=== PATIENT | female | born 2000 | race Two or more races ===

== ENCOUNTER 2023-04-09 15:03 | Emergency (ER) | payer MEDICAID ==
[~2023-04-09] VITALS: Ht 170.2 cm; Wt 62.0 kg
[2023-04-09 16:02] VITALS: BP 108/59; PULSE 79; RESP 16; TEMP 98.8; O2SAT 98
== END 2023-04-09 16:26 | disposition home or self-care (01) ==
LOC: ER 15:03
DX: S61.411A Laceration without foreign body of right hand, initial encounter (principal); W22.8XXA Striking against or struck by other objects, initial encounter; Y93.89 Activity, other specified; Y92.89 Other specified places as the place of occurrence of the external cause; Y99.8 Other external cause status
CPT/HCPCS: 12001

== ENCOUNTER 2024-01-01 00:27 | Emergency (ER) | payer MEDICAID ==
[~2024-01-01] VITALS: Ht 170.2 cm; Wt 69.9 kg
[2024-01-01] MEDS: ONDANSETRON ODT 4 MG TAB PO ONE (05:15)
[2024-01-01 05:17] VITALS: BP 109/62; PULSE 78; RESP 18; TEMP 97.7; O2SAT 97
[2024-01-01] MEDS ORDERED: ZOFR4T PO (05:32)
== END 2024-01-01 06:07 | disposition home or self-care (01) ==
LOC: ER 00:27
DX: A05.9 Bacterial foodborne intoxication, unspecified (principal)
CPT/HCPCS: 99283; Q0162

== ENCOUNTER 2025-03-11 19:06 | Emergency (ER) | payer MEDICAID ==
[~2025-03-11] VITALS: Ht 172.7 cm; Wt 79.3 kg
[~2025-03-11 19:06] MED LIST: ZOFR4T PO
[2025-03-11] MEDS: SODIUM CHLORIDE 0.9% 1,000 ML IVB ONE (19:45)
[2025-03-11 19:55] LABS: Hematocrit 39.9 % (36.0-46.0); Hemoglobin 13.5 g/dL (12.2-16.2); Mean Corpuscular Hemoglobin 30.2 pg (28.0-32.0); Mean Corpuscular Volume 89.1 fL (80.0-100.0); Nucleated Red Blood Cells % 0.1 %
--- NOTE | 2025-03-11 20:10 | ED.PDOC ---
History of Present Illness HPI Comments 24 y/o F, with no significant medical history, presents with c/o abdominal pain. Patient reports 1x day history of pain, which is localized above her naval and radiates to her mid-epigastric area and mid-sternum. It is described as burning in quality. Only provoking factor when placing pressure over her abdomen. Denies any recent travel, sick contact, injuries, spoiled food intake, possible , or further pertinent history. Denies on having any nausea, vomiting, diarrhea, urinary symptoms, fever, chills, or further associated symptoms. Chief Complaint: Abdominal Pain Time Seen by MD: 19:20 Primary Care Provider: NONE Reviewed Notes: Nurses Notes, Medications, Allergies Allergies: Coded Allergies: NO KNOWN ALLERGIES (Unverified , 04/09/23) Home Meds Active Scripts Ondansetron Odt 4MG Tab (ZOFRAN PO) 4 Mg Tb, 4 MG PO Q6HPRN PRN, #20 TAB ODT TAB-DISSOLVE IN MOUTH, THEN SWALLOW Prov:RALPH DOMINGUEZ PAC 01/01/24 Information Source: Patient Mode of Arrival: Ambulatory Severity: Moderate Timing: Days Duration: Since onset Prehospital treatment: None Past Medical History PAST MEDICAL HISTORY: Denies Surgical History: Denies all surgeries NURSE EXAMINER History: Denies all NURSE EXAMINER Hx Family History Family History: Reviewed,noncontributory to illness Social History Smoker: Non-Smoker Alcohol: Denies ETOH Use Drugs: Denies Drug Use Lives In: Home All Other Systems: Reviewed and Negative (Comprehensive systems review obtained and negative except for what is stated in the HPI.) Physical Exam General Appearance: Mild Distress, Normal HEENT: Normal ENT Inspection, Pharynx Normal, TMs Normal Neck: Full Range of Motion, Non-Tender, Normal, Normal Inspection Respiratory: Chest Non-Tender, Lungs Clear, No Accessory Muscle Use, No Respiratory Distress, Normal Breath Sounds Cardiovascular: No Edema, No JVD, No Murmur, No Gallop, Normal Peripheral Pulses, Regular Rate/Rhythm Breast Exam: Deferred Gastrointestinal: No Organomegaly, No Pulsatile Mass, Normal Bowel Sounds, Soft, Tenderness (above umbilicus ) Genitalia: Deferred Pelvic: Deferred Rectal: Deferred Extremities: No calf tenderness, Normal capillary refill, Normal inspection, Normal range of motion, Non-tender, No pedal edema Musculoskeletal : Apperance: Normal Neurologic: Alert, supervisor coil winding II-XII nml as Tested, No Motor Deficits, Normal Affect, Normal Mood, No Sensory Deficits Cerebellar Function: Normal Reflexes: Normal Skin: Dry, Normal Color, Warm Lymphatic: No Adenopathy Was a procedure done? Was a procedure done?: No Differential Dx Considerations may include: gastritis, gastroenteritis, GERD, PUD, spoiled food, , viral syndrome, among others X-Ray, Labs, Meds, VS Vital Signs Date Time Temp Pulse Resp B/P (MAP) Pulse Ox O2 Delivery O2 Flow Rate FiO2 03/12/25 02:15 98.1 75 20 118/75 (89) 99 98.1 03/12/25 02:15 20 20 99 Room Air 03/11/25 19:07 99.2 74 15 121/71 99 99.2 Lab Test 03/11/25 20:45 03/11/25 19:43 Range/Units Urine Color Colorless Yellow Urine Clarity Clear Clear Urine pH 6.5 5.0-9.0 Urine Specific [place] 1.004 1.001-1.035 Urine Protein Negative Negative Urine Ketones Negative Negative Urine Blood Negative Negative /uL Urine Nitrite Negative Negative Urine Bilirubin Negative Negative Urine Urobilinogen Normal Negative mg/dL Urine Leukocyte Esterase Negative Negative /uL Urine RBC <1 0 - 4 /hpf Urine Microscopic WBC < 1 0-5 /HPF Urine Squamous Epithelial Cells None seen <5 /hpf Urine Bacteria None seen None Seen /hpf Urine Glucose Normal Normal mg/dL Urine Test Negative Negative White Blood Count 8.3 4.4-10.8 10^3/uL Red Blood Count 4.47 4.0-5.20 10^6/uL Hemoglobin 13.5 12.2-16.2 g/dL Hematocrit 39.9 36.0-46.0 % Mean Corpuscular Volume 89.1 80.0-100.0 fL Mean Corpuscular Hemoglobin 30.2 28.0-32.0 pg Mean Corpuscular Hemoglobin Concent 33.8 32.0-36.0 g/dL Red Cell Distribution Width 12.9 11.8-14.3 % Platelet Count 283 140-450 10^3/uL Mean Platelet Volume 7.3 6.9-10.8 fL Neutrophils (%) (Auto) 54.1 37.0-80.0 % Lymphocytes (%) (Auto) 35.0 10.0-50.0 % Monocytes (%) (Auto) 9.1 0.0-12.0 % Eosinophils (%) (Auto) 1.2 0.0-7.0 % Basophils (%) (Auto) 0.6 0.0-2.0 % Neutrophils # (Auto) 4.5 1.6-8.6 10 ^3/uL Lymphocytes # (Auto) 2.9 0.4-5.4 10 ^3/uL Monocytes # (Auto) 0.8 0-1.3 10 ^3/uL Eosinophils # (Auto) 0.1 0-0.8 10 ^3/uL Basophils # (Auto) 0 0-0.2 10 ^3/uL Nucleated Red Blood Cells 0.1 % Sodium Level 141 136-145 mmol/L Potassium Level 3.8 3.5-5.1 mmol/L Chloride Level 106 98-107 mmol/L Carbon Dioxide Level 27 20-31 mmol/L Anion Gap 8 5-15 Blood Urea Nitrogen 15 9-23 mg/dL Creatinine 1.06 H 0.550-1.02 mg/dL Glomerular Filtration Rate Calc 75 >90 mL/min BUN/Creatinine Ratio 14.2 10.0-20.0 Serum Glucose 89 74-106 mg/dL Calcium Level 9.2 8.7-10.4 mg/dL Total Bilirubin 0.3 0.2-1.0 mg/dL Aspartate Amino Transferase (AST) 16 13-40 U/L Alanine Aminotransferase (ALT) 12 7-40 U/L Alkaline Phosphatase 65 46-116 U/L Total Protein 6.5 5.7-8.2 g/dL Albumin 4.6 3.2-4.8 g/dL Lipase 43 12-53 U/L Current Medications Medications (Trade) Dose Ordered Sig/Elissa Route Start Time Stop Time Status Last Admin Sodium Chloride 1,000 ml @ 1,000 mls/hr Q1H ONCE IVB 03/11/25 19:45 03/11/25 20:44 DC 03/11/25 19:45 Time of 1ST Reevaluation: 19:50 Reevaluation 1ST: Unchanged Patient Education/Counseling: Diagnosis, Treatment, Need For Follow Up Family Education/Counseling: No Family Present SEPSIS Sepsis Screen Date sepsis recognized/suspect: Mar 11, 2025 Time Sepsis recognized/suspect: 1907 Recent Procedure: No On Antibiotic Therapy: No Respiratory Rate >20: No Heart Rate >90: No Temp<36 C (96.8 F) or >38.3 C: No SBP <90 or MAP <65 mmHG: No New Acute Mental Status Change: No Is the patient on CPAP, BIPAP,: No Physician Orders Ct Ab Pel With Iv Con Only (03/11/25 19:32) Vital Signs Date Time Temp Pulse Resp B/P (MAP) Pulse Ox O2 Delivery O2 Flow Rate FiO2 03/12/25 02:15 98.1 75 20 118/75 (89) 99 98.1 03/12/25 02:15 20 20 99 Room Air 03/11/25 19:07 99.2 74 15 121/71 99 99.2 Laboratory Tests Test 03/11/25 19:43 White Blood Count 8.3 10^3/uL (4.4-10.8) Medications Medications Dose Ordered Sig/Elissa Route Start Time Stop Time Status Last Admin Dose Admin Sodium Chloride 1,000 ml @ 1,000 mls/hr Q1H ONCE IVB 03/11/25 19:45 03/11/25 20:44 DC 03/11/25 19:45 Departure 1 Departure Time of Disposition: 21:40 Impression: Primary Impression: Ovarian cyst Additional Impression: Dermoid cyst Disposition: HOME / SELF CARE / HOMELESS Condition: Stable Discharged With: Self Critical Care Note Critical Care Time?: No Stability Stability form required: No Heart Score Heart Score: Heart Score Response (Comments) Value History N/A 0 EKG N/A 0 Age N/A 0 Risk Factors N/A 0 Troponin N/A 0 Total 0 I personally scribed for DARIN HALL MD ([email or web address]) on 03/11/25 at 20:10. Electronically submitted by Chico Yoder [email or web address]). DARIN HALL MD Mar 11, 2025 20:10
[2025-03-11 20:15] LABS: Alanine Aminotransferase 12 U/L (7-40); Albumin 4.6 g/dL (3.2-4.8); Alkaline Phosphatase 65 U/L (46-116); Anion Gap 8 (5-15); BUN/Creatinine Ratio 14.2 (10.0-20.0); Bilirubin, Total 0.3 mg/dL (0.2-1.0); Blood Urea Nitrogen 15 mg/dL (9-23); Calcium 9.2 mg/dL (8.7-10.4); Carbon Dioxide 27 mmol/L (20-31); Chloride 106 mmol/L (98-107); Glucose 89 mg/dL (74-106); Lipase 43 U/L (12-53); Potassium 3.8 mmol/L (3.5-5.1); Sodium 141 mmol/L (136-145); Total Protein 6.5 g/dL (5.7-8.2)
[2025-03-11 21:28] LABS: Urine Protein, UAD Negative (Negative)
[2025-03-12] MEDS: IOHEXOL 300 MG/ML 100ML BOTTLE IJ ONE (00:37)
--- NOTE | 2025-03-12 00:42 | DVH ---
Exam: CT CT AB PEL WITH IV CON ONLY History: abd pain Comparison Study: None TECHNIQUE: Multidetector CT of the abdomen was performed from lung bases to pubic symphysis. Imaging was performed without IV contrast. Axial, coronal and sagittal multiplanar reformats were obtained fr om the axial data set by the technologist. Radiation Dose Information: Dose-length product is 604.37 mGy*cm FINDINGS: Limited sections of the lung bases demonstrate no focal pulmonary mass. The liver, spleen, pancreas, and both adrenal glands demonstrate no acute findings. Hepatomegaly to 1 9.4 cm. The gallbladder is contracted. The stomach is unremarkable. The small bowel loops are not dilated. The appendix is normal. No colonic obstruction. Bilateral kidneys are unremarkable. No hydronephrosis. The urinary bladder is distended. No significant lymphadenopathy. No free air or free fluid. 5.6 x 3.6 cm left ovarian mass predominantly fatty with internal calcifica tion may reflect dermoid cyst. The aorta and IVC demonstrate no acute findings. Visualized osseous structures demonstrate no acute abnormality. IMPRESSION: 1. No acute intra-abdominal process. 2. 5.6 x 3.6 cm left ovarian mass predominantly fatty with internal calcification may reflect dermoid cyst.
[2025-03-12 02:15] VITALS: BP 118/75; PULSE 20; RESP 20; TEMP 98.1; O2SAT 99
== END 2025-03-12 01:55 | disposition home or self-care (01) ==
LOC: ER 19:06
DX: N83.209 Unspecified ovarian cyst, unspecified side (principal); D36.9 Benign neoplasm, unspecified site
CPT/HCPCS: 36415; 74177; 80053; 81001; 81025; 83690; 85025; 96360; 99285; J7030; Q9967